=== PATIENT | male | born 1975 | race Caucasian/White ===

== ENCOUNTER 2020-03-08 11:23 | Emergency (ER) | payer SELFPAY ==
[2020-03-08 11:29] VITALS: BP 120/72
[2020-03-08] MEDS ORDERED: CIPROFLOXACIN HCL/DEXAMETH OTIC DROP 7.5 ML AS ONE (12:37)
--- NOTE | 2020-03-08 12:42 | ER Document Report ---
ED General - General Chief Complaint: Skin Problem Stated Complaint: SKIN PROBLEM Time Seen by Provider: 03/08/20 12:05 - HPI Notes: Patient is a 44 y/o male who presents with a hx of NSTEMI x3 and DM II who presents with a rash that began two days ago. He states that the rash began two days ago to the side of his left face. He states it then became painful yesterday. He has a hx of a perforated ear drum after having an ear infection two months ago. Patient has not been seen by ENT but has an appoint on 03/12/2020. He denies fever, vision changes, facial weakness, hearing loss, nausea, vomiting and abdominal pain. He has been using calamine lotion with minimal relief. He denies being on any antibiotics recently. Patient has not had the shingles vaccine. Past Medical History - General Information source: Patient - Social History Smoking Status: Unknown if Ever Smoked Frequency of alcohol use: Occasional Drug Abuse: None Family History: Reviewed & Not Pertinent Review of Systems - Review of Systems Constitutional: No symptoms reported EENT: See HPI Cardiovascular: No symptoms reported Respiratory: No symptoms reported Gastrointestinal: No symptoms reported Genitourinary: No symptoms reported Male Genitourinary: No symptoms reported Musculoskeletal: No symptoms reported Skin: See HPI Hematologic/Lymphatic: No symptoms reported Neurological/Psychological: No symptoms reported Physical Exam - Vital signs Vitals: Temp Pulse Resp BP Pulse Ox 97.7 F 88 14 120/72 95 03/08/20 11:27 03/08/20 11:27 03/08/20 11:27 03/08/20 11:27 03/08/20 11:27 - Notes Notes: PHYSICAL EXAMINATION: GENERAL: Well-appearing, well-nourished and in mild distress. HEAD: Atraumatic, normocephalic. Multiple vesicles with erythema to the left face following the mandibular dermatome. Swelling noted the left angle of the mandible. CN XII normal with no weakness. EYES: sclera anicteric, conjunctiva are normal. ENT: Moist mucous membranes. Palpable and tender post-auricular lymph node on the left side. Perforated left TM with vesicles visualized in the external auditory canal. NECK: Normal range of motion. LUNGS: Normal work of breathing HEART: 2+ radial pulses bilaterally EXTREMITIES: no pitting or edema. No cyanosis. NEUROLOGICAL: No focal neurological deficits. Moves all extremities spontaneously and on command. CN II_XII grossly intact. PSYCH: Normal mood, normal affect. SKIN: Warm, Dry, normal turgor, no rashes or lesions noted. Course - Re-evaluation Re-evalutation: patient is a 44 y/o male who presents with a rash to the left side of his face that began two days ago and became painful yesterday. Vital signs are within normal limits. On exam, vesicular rash to the left face following the mandibular dermatome, with vesicles noted in the left EAC. Perforated TM on the left side. Swelling noted along the mandibular angle. Based on the patient's presentation and physical exam, I am suspicious of shingles with involvement of his EAC. Also due to the swelling along the jaw I am concerned for a superimposed bacterial infection. Low suspicion of ophthalmic involvement as well as Maria Elena Best syn drome as patient has no vision impairment or eye symptoms, as well as, no hearing loss or facial weakness. Patient will be discharged with prescriptions for acyclovir and Augmentin. Patient given a bottle of Ciprodex here in the ED. Discussed the importance of maintaining his ENT appointment this week. Return precautions and follow-up instructions given. Patient understands and is in agreement with plan. - Vital Signs Vital signs: Temp Pulse Resp BP Pulse Ox 97.7 F 88 14 120/72 95 03/08/20 11:27 03/08/20 11:27 03/08/20 11:27 03/08/20 11:27 03/08/20 11:27 Discharge - Discharge Clinical Impression: Perforated left tympanic membrane on examination, Herpes zoster of the ear Shingles Qualifiers: Herpes zoster complications: with other complications Qualified Code(s): B02.8 - Zoster with other complications Condition: Stable Disposition: HOME, SELF-CARE Additional Instructions: Take acyclovir 5 times a day for 10 days. Take augmentin 2 times a day for 7 days. Use the ciprodex ear drops - 4 drops twice a day for 10 days. Follow up with ENT at your scheduled appointment on 03/12/2020. Shingles You have shingles. Shingles is caused by the chicken pox virus, The virus has been surviving dormant in a nerve cell since you had chicken pox years ago. The virus has spread down a nerve root to reach the skin. Typically, an band-like area of pain and skin sensitivity develops, then small blisters erupt in the area. Shingles lasts two or three weeks, but sometimes leaves persistent pain. You are contagious -- you can give children chicken pox. But you can't give anyone shingles. Antiviral medicines (such as acyclovir or famciclovir) can help, but the rash usually worsens for about a week. Pain medication is often given if the area hurts. Antihistamines such as Benadryl may be necessary for itching if it does not respond to soda baths and calamine lotion. Sometimes cortisone medicine or nerve-block shots are necessary if pain is severe. If the area remains severely painful as the sores heal, or if you suspect an infection developing in the sores, see your doctor. Perforated Eardrum You have a ruptured eardrum. The ruptured eardrum alone is usually not serious. It will probably heal completely within a week or two. If the perforation is too large to heal, further treatment may be necessary. Antibiotics are given if the perforation resulted from infection, or if the middle ear cavity may have been contaminated at the time of perforation. Do not allow any water to get into your ear until the doctor has told you the eardrum is healed. Use an earplug or Vaseline-covered cotton ball for showers. DO NOT SWIM. Follow-up examination to assure complete healing and complete return of hearing will be necessary, and is usually done in one week. If there is purulent drainage, increasing pain, or fever, call the doctor or return at once for re-evaluation. Prescriptions: Amoxicillin/Potassium Clav [Augmentin 875-125 Tablet] 1 tab PO Q12 7 Days #14 tablet Acyclovir [Zovirax 800 mg Tablet] 800 mg PO 5XD 10 Days #50 tab
== END 2020-03-08 13:27 | disposition home or self-care (01) ==
LOC: ER 11:23
DX: B02.9 Zoster without complications (principal); H72.92 Unspecified perforation of tympanic membrane, left ear; E11.9 Type 2 diabetes mellitus without complications
CPT/HCPCS: 99283; J3490